=== PATIENT | female | born 1940 | race Hispanic/Latino ===

== ENCOUNTER 2020-07-04 05:05 | Observation (INO) | payer MEDICARE ==
[2020-06-30 15:17] LABS: BASOPHILS # (AUTO) 0.1 (0.0-0.1); EOSINOPHILS # (AUTO) 0.3 (0.0-0.4); EOSINOPHILS % 4.4 % (0.0-6.0); HEMATOCRIT 44.6 % (34.2-44.1); HEMOGLOBIN 14.1 g/dL (12.0-16.0); LYMPHOCYTES % 26.2 % (18.0-39.1); MEAN CORPUSCULAR HEMOGLOBIN 29.9 pg (28-32); MEAN CORPUSCULAR HGB CONC 31.6 g/dL (31-35); MEAN CORPUSCULAR VOLUME 94.5 fL (81-99); MONOCYTES # (AUTO) 0.7 (0.2-0.8); MONOCYTES % 9.2 % (4.4-11.3); NEUTROPHILS # (AUTO) 4.5 (2.1-6.9); NEUTROPHILS % 58.6 % (38.7-80.0); PLATELET COUNT 307 x10e3/uL (140-360); RED BLOOD COUNT 4.72 x10e6/uL (3.6-5.1); RED CELL DISTRIBUTION WIDTH 13.2 % (11.7-14.4)
[~2020-07-04] VITALS: Ht 157.5 cm; Wt 85.7 kg
[2020-07-04] VITALS (7 sets, daily range): BP systolic 126–146; BP diastolic 59–75
[~2020-07-04 05:05] MED LIST: COMBIGAN EYE DRO5 ML OP; ELIQUIS5 MG PO; FENOFIBRATE145 MG PO; LEVOTHYROXINE112 MCG PO; LOSARTAN POTASS25 MG PO; METOPROLOL SUCC50 MG PO; PANTOPRAZOLE SO40 MG PO
[2020-07-04] MEDS ORDERED: DEXAMETHASONE SOD PHOS 10 MG/1 ML VIAL ONE (06:21)
[2020-07-04] MEDS ORDERED: CEFAZOLIN SOD 1 GM/NS 50ML 100 ML IV ONE (06:21)
[2020-07-04] MEDS ORDERED: GABAPENTIN 300 MG CAP ONE (06:21)
[2020-07-04] MEDS ORDERED: TYLENOL EXTRA500 MG PO (06:25)
[2020-07-04] MEDS ORDERED: FLONASE ALLERG9.9 ML INH (06:25)
[2020-07-04] MEDS ORDERED: VANCOMYCIN HCL 1,000 MG ONE (06:33)
[2020-07-04] MEDS ORDERED: TRANEXAMIC ACID 1,000 MG/10 ML ML ONE (06:33)
[2020-07-04] MEDS ORDERED: SODIUM CHLORIDE 0.9% 500ML 500 ML ONE (06:33)
[2020-07-04] MEDS ORDERED: ACETAMINOPHEN 1000 MG/100 ML 100 ML IV ONE (07:34)
[2020-07-04] MEDS ORDERED: ROPIVACAINE 246.25 MG, EPINEPHRINE HCL 1:1000 1ML 0.5 MG, CLONIDINE HCL 0.08 MG, KETORO... INJ ONE ×5 (08:00)
[2020-07-04] MEDS ORDERED: DIPHENHYDRAMINE HCL INJ 50 MG/ML VIAL IV PRN (08:15)
[2020-07-04] MEDS ORDERED: ONDANSETRON HCL INJ 2MG/ML 2ML 2 MG/ML VIAL IV PRN (08:15)
[2020-07-04] MEDS ORDERED: HYDROCODONE/APAP 7.5MG-325MG 1 EA TAB PO PRN (08:15)
[2020-07-04] MEDS ORDERED: ZOLPIDEM TARTRATE 5 MG TAB PO PRN (08:15)
[2020-07-04] MEDS ORDERED: DOCUSATE SODIUM 100 MG CAP PO PRN (08:15)
[2020-07-04] MEDS ORDERED: KETOROLAC TROMETHAMINE 30 MG/ML VIAL IV PRN (08:15)
[2020-07-04] MEDS ORDERED: ACETAMINOPHEN 650 MG SUPP PR PRN (08:15)
[2020-07-04] MEDS ORDERED: HYDROMORPHONE 1MG/1ML INJ ONE (08:41)
[2020-07-04] MEDS ORDERED: HYDRALAZINE HCL 20 MG/ML VIAL ONE (08:47)
[2020-07-04] MEDS ORDERED: CELECOXIB 100 MG CAP PO SCH (09:00)
[2020-07-04] MEDS ORDERED: SODIUM CHLORIDE 0.9% 1000ML 1,000 ML IV SCH (11:00)
[2020-07-04] MEDS ORDERED: PROPOFOL IV EMULSION 10 MG/ML 20 ML VIAL ONE (13:05)
[2020-07-04] MEDS ORDERED: ONDANSETRON HCL INJ 2MG/ML 2ML 2 MG/ML VIAL ONE (13:05)
[2020-07-04] MEDS ORDERED: LIDOCAINE HCL 2% JELLY 5 ML TUBE ONE (13:05)
[2020-07-04] MEDS ORDERED: LIDOCAINE HCL 2% LOCAL INJ 5 ML SDV VIAL INJ ONE (13:05)
[2020-07-04] MEDS ORDERED: ALBUTEROL SULFATE HFA 8GM INHALATION AEROSOL INH ONE (13:05)
[2020-07-04] MEDS ORDERED: DEXAMETHASONE SOD PHOS INJ 4 MG/ML VIAL ONE (13:05)
[2020-07-04] MEDS ORDERED: SEVOFLURANE INHAL SOLN 250 ML PEN BTL ONE (13:05)
[2020-07-04] MEDS ORDERED: FENTANYL CITRATE/PF 100MCG/2 ML INJ ONE (14:00)
[2020-07-04] MEDS ORDERED: MIDAZOLAM HCL 2 MG/2 ML VIAL ONE (14:00)
[2020-07-04] MEDS: CEFAZOLIN SOD 1 GM/NS 50ML 50 ML IV SCH ×3 (14:41→21:47)
[2020-07-04] MEDS: ASPIRIN 325 MG TAB PO SCH (17:30)
[2020-07-04] MEDS ORDERED: FLUTICASONE PROPIONATE NASAL SPRAY NS PRN (18:45)
[2020-07-04] MEDS ORDERED: ACETAMINOPHEN 325 MG TAB PO PRN (18:45)
[2020-07-04] MEDS ORDERED: LOSARTAN POTASSIUM 25 MG TAB PO SCH (21:00)
[2020-07-05] MEDS: HYDROCODONE/APAP 5MG-325MG TAB PO PRN ×2 (00:24→08:52)
[2020-07-05 01:57] VITALS: BP 130/69
[2020-07-05 04:56] VITALS: BP 126/71
[2020-07-05] MEDS: CEFAZOLIN SOD 1 GM/NS 50ML 50 ML IV SCH (05:31)
[2020-07-05] MEDS ORDERED: LEVOTHYROXINE SODIUM 125 MCG TAB PO SCH (06:00)
[2020-07-05 06:37] LABS: HEMATOCRIT 36.5 % (34.2-44.1); HEMOGLOBIN 12.2 g/dL (12.0-16.0)
[2020-07-05 07:14] VITALS: BP 128/88
[2020-07-05 07:24] VITALS: BP 128/88
[2020-07-05] MEDS ORDERED: PANTOPRAZOLE SOD 40 MG TABEC PO SCH (07:30)
[2020-07-05] MEDS ORDERED: ACETAMINOPHEN 1000 MG/100 ML IV PRN (08:15)
[2020-07-05] MEDS: ASPIRIN 325 MG TAB PO SCH (08:43)
[2020-07-05] MEDS ORDERED: HOME MEDICATION--PATIENTS OWN PO SCH (09:00)
[2020-07-05] MEDS ORDERED: BRIMONIDINE/TIMOLOL (OPTH SOLN 5 ML DRPETTE OP SCH (09:00)
[2020-07-05] MEDS ORDERED: METOPROLOL SUCCINATE 50 MG TAB XL PO SCH (09:00)
[2020-07-05 11:23] VITALS: BP 126/58
== END 2020-07-05 15:36 | disposition home or self-care (01) ==
LOC: OR 05:05 → PACU V 08:20 → MED/SURG 09:00
PROVIDERS: ADMIT Specialist; ATTEND Specialist
DX: M17.11 Unilateral primary osteoarthritis, right knee (principal); I10 Essential (primary) hypertension; R32 Unspecified urinary incontinence; K58.9 Irritable bowel syndrome, unspecified; D64.9 Anemia, unspecified; Z88.8 Allergy status to other drugs, medicaments and biological substances; Z96.652 Presence of left artificial knee joint; Z01.810 Encounter for preprocedural cardiovascular examination; Z01.812 Encounter for preprocedural laboratory examination; Z01.818 Encounter for other preprocedural examination; Z20.822 Contact with and (suspected) exposure to COVID-19; E03.9 Hypothyroidism, unspecified
CPT/HCPCS: 27447; 36415 ×2; 71046; 73560; 85014; 85018; 85025; 86850; 86900; 86920; 93005; 97116 ×2; 97161; 97530 ×2; C1713 ×4; C1776 ×2; G0378 ×2; J0131; J0171; J0360; J0690 ×2; J1100 ×2; J1170; J1885; J2001 ×2; J2250; J2405; J2704; J2795; J3010; J3370; J7030; J7040; S0164; U0002